=== PATIENT | male | born 2000 | race Caucasian/White ===

== ENCOUNTER 2019-03-06 12:32 | Emergency (ER) | payer MEDICAID ==
[~2019-03-06] VITALS: Ht 182.9 cm; Wt 99.8 kg
[2019-03-06 12:45] VITALS: BP_SYST 152
--- NOTE | 2019-03-06 13:21 | NUR ---
Patient to ER bed 04 to gown for evaluation. Side rails up.
--- NOTE | 2019-03-06 13:25 | NUR ---
Patient is awake, alert, and oriented x4. Patient reports throwing his headback while sitting on a balcony, striking a wood beam. Patient reports dizziness, blurry vision, nausea after striking the beam. Patient is complaing of throbbing headache 3/10 and dizziness at this time. No trauma noted to his head.
--- NOTE | 2019-03-06 13:27 | NUR ---
ER CHRISTOPHE Rahman examining patient.
[2019-03-06] MEDS ORDERED: ONDANSETRON 4 MG ODT TAB PO ONE (13:45)
[2019-03-06] MEDS ORDERED: ACETAMINOPHEN 500 MG TABLET PO ONE (13:45)
[2019-03-06 13:54] VITALS: BP_SYST 148
--- NOTE | 2019-03-06 13:54 | NUR ---
Patient given written and verbal discharge instructions and verbalizes understanding. ER MD discussed with patient the results and treatment provided. Patient in stable condition. ID arm band removed. Rx of zofran ODT, tylenol given. Patient educated on pain management and to follow up with PMD. Pain Scale 3/10. Opportunity for questions provided and answered. Medication side effect fact sheet provided.
== END 2019-03-06 13:54 | disposition home or self-care (01) ==
LOC: SED 12:32
DX: F07.81 Postconcussional syndrome (principal); R03.0 Elevated blood-pressure reading, without diagnosis of hypertension
CPT/HCPCS: 99283; Q0162